=== PATIENT | male | born 1955 | race Caucasian/White ===

== ENCOUNTER 2018-10-10 22:09 | Inpatient (IN) ==
[2018-10-10] MEDS ORDERED: SODIUM CHLORIDE 0.9% 2,000 ML IV STA (22:34)
[2018-10-10 22:58] LABS: Basophils % 1.2 % (0.0-0.8); Eosinophils % 2.3 % (0.00-10.9); Hematocrit 32.6 VOL% (42.0-52.0); Hemoglobin 10.4 GM/DL (14.0-18.0); Immature Granulocytes % 1.2 %; Immature Granulocytes Absolute 0.01 #; Lymphocytes # 0.3 10*3/uL (1.4-4.0); Lymphocytes % 37.2 % (21.2-54.2); Mean Corpuscular HGB Conc 31.9 GM/DL (32-36); Mean Corpuscular Volume 98.2 FL (87-102); Mean Platelet Volume 10.3 FL (9.6-12.0); Neutrophils % 58.1 % (38.7-73.9); Platelet Count 172 T/CUMM (130-400); Red Blood Count 3.32 MC/CUMM (3.8-5.5); Red Cell Distribution Width 14.3 % (9.3-17.3)
[2018-10-10 23:11] LABS: Alanine Aminotransferase 28 U/L (16-61); Albumin 3.5 G/DL (3.4-5.0); Alkaline Phosphatase 67 U/L (45-117); Aspartate Amino Transferase 19 U/L (0-37); Blood Urea Nitrogen 39 MG/DL (7-18); Glucose 139 MG/DL (74-106); Osmolality,Calculated 285.7 MOS/KG (273-304)
[2018-10-10 23:16] LABS: Apearance,Urine CLOUDY (Clear); Bilirubin,Urine Negative (Negative); Blood, Urine Large mg/dL (Negative); Glucose,Urine (UA) Negative (Negative); Ketones,Urine Negative (Negative); Nitrite,Urine Positive (Negative); Protein,Urine 100 MG/DL; RBC,Urine 51 /HPF (0-4); Urine Color Yellow (Yellow); Urine Specific Gravity 1.015 (1.001-1.035); Urine Urobilinogen < 2.0 EU/DL (0.2-1.0); WBC,Urine 718 /HPF (0-6)
[2018-10-10 23:22] LABS: White Blood Count 0.9 T/CUMM (4-12)
[2018-10-10] MEDS ORDERED: VANCOMYCIN INJ 1,000 MG in SODIUM CHLORIDE 0.9% 250 ML IV STA ×2 (23:40→23:42)
[2018-10-10] MEDS ORDERED: CEFEPIME 2,000 MG in SODIUM CHLORIDE 0.9% 100 ML IV STA (23:40)
[2018-10-11] MEDS: NOREPINEPHRINE 8 MG in SODIUM CHLORIDE 0.9% 242 ML IV PRN ×3 (01:12→13:06)
[2018-10-11 01:56] LABS: Band Neutrophils 6 % (0-10); Eosinophils 6 % (0-10); Lymphocytes 29 % (20-55); Platelet Estimate Normal; Segmented Neutrophils 57 % (50-85); Total Cells Counted 101
[2018-10-11] MEDS ORDERED: SODIUM CHLORIDE 0.9% 1,000 ML IV STA (02:23)
[2018-10-11] MEDS ORDERED: DOCUSATE SODIUM 100 MG CAPSULE PO PRN (04:57)
[2018-10-11] MEDS ORDERED: ONDANSETRON 4 MG/2 ML VIAL IV PRN (04:57)
[2018-10-11] MEDS ORDERED: ACETAMINOPHEN 325 MG TABLET PO PRN (04:57)
[2018-10-11] MEDS ORDERED: SODIUM CHLORIDE 0.9% 1,000 ML IV SCH (05:00)
[2018-10-11] MEDS: PIPERACILLIN/TAZOBACTAM 3,375 MG in SODIUM CHLORIDE 0.9% 100 ML IV SCH ×3 (05:01→22:00)
[2018-10-11] MEDS: ENOXAPARIN 40 MG/0.4 ML SYRINGE SUBCUT SCH (05:07)
[2018-10-11 06:25] LABS: Calcium 8.2 MG/DL (8.5-10.1); Osmolality,Calculated 293.1 MOS/KG (273-304); Thyroid Stimulating Hormone 4.56 uIU/ml (0.358-3.74)
[2018-10-11 06:43] LABS: Basophils % 0.3 % (0.0-0.8); Eosinophils % 0.4 % (0.00-10.9); Hematocrit 26.1 VOL% (42.0-52.0); Hemoglobin 8.6 GM/DL (14.0-18.0); Immature Granulocytes % 0.8 %; Immature Granulocytes Absolute 0.06 #; Lymphocytes # 0.2 10*3/uL (1.4-4.0); Lymphocytes % 2.8 % (21.2-54.2); Mean Corpuscular Volume 98.1 FL (87-102); Mean Platelet Volume 10.7 FL (9.6-12.0); Monocytes % 1.1 % (1.7-12.7); Neutrophils % 94.6 % (38.7-73.9); Platelet Count 132 T/CUMM (130-400); Red Blood Count 2.66 MC/CUMM (3.8-5.5); Red Cell Distribution Width 14.5 % (9.3-17.3); White Blood Count 7.6 T/CUMM (4-12)
[2018-10-11 07:12] LABS: Band Neutrophils 33 % (0-10); Eosinophils 2 % (0-10); Lymphocytes 5 % (20-55); Platelet Estimate Adequate; Segmented Neutrophils 60 % (50-85); Total Cells Counted 100
[2018-10-11 07:13] LABS: Anisocytosis Slight; Macrocytosis Slight
[2018-10-11] MEDS ORDERED: NOREPINEPHRINE 4 MG/4 ML VIAL IV ONE (08:04)
[2018-10-11] MEDS ORDERED: HYDROCORTISONE 100 MG VIAL IV ONE (09:45)
[2018-10-11] MEDS ORDERED: FLUDROCORTISONE 0.1 MG TABLET PO SCH (10:00)
[2018-10-11] MEDS: SODIUM BICARB INJ 150 MEQ in DEXTROSE 5% 850 ML IV SCH ×2 (11:29→19:29)
[2018-10-11] MEDS: HYDROCORTISONE 100 MG VIAL IV SCH (22:00)
[2018-10-12] MEDS: SODIUM BICARB INJ 150 MEQ in DEXTROSE 5% 850 ML IV SCH (03:29)
[2018-10-12 04:10] LABS: Basophils % 0.3 % (0.0-0.8); Eosinophils % 0.2 % (0.00-10.9); Hematocrit 25.5 VOL% (42.0-52.0); Hemoglobin 8.4 GM/DL (14.0-18.0); Immature Granulocytes % 8.5 %; Immature Granulocytes Absolute 0.85 #; Lymphocytes # 0.7 10*3/uL (1.4-4.0); Lymphocytes % 6.6 % (21.2-54.2); Mean Corpuscular HGB Conc 32.9 GM/DL (32-36); Mean Corpuscular Volume 96.6 FL (87-102); Mean Platelet Volume 11.8 FL (9.6-12.0); Monocytes % 5.7 % (1.7-12.7); Neutrophils % 78.7 % (38.7-73.9); Platelet Count 93 T/CUMM (130-400); Red Blood Count 2.64 MC/CUMM (3.8-5.5); Red Cell Distribution Width 14.5 % (9.3-17.3)
[2018-10-12 04:40] LABS: Calcium 8.4 MG/DL (8.5-10.1); Osmolality,Calculated 294.7 MOS/KG (273-304)
[2018-10-12 04:41] LABS: Band Neutrophils 7 % (0-10); Lymphocytes 6 % (20-55); Metamyelocytes 5 %; Myelocytes 5 %; Segmented Neutrophils 73 % (50-85); Total Cells Counted 100
[2018-10-12 04:42] LABS: Hypochromasia Slight; Platelet Estimate Adequate
[2018-10-12 04:43] LABS: Ovalocytes 1+; Reactive Lymphocytes Few
[2018-10-12] MEDS: PIPERACILLIN/TAZOBACTAM 3,375 MG in SODIUM CHLORIDE 0.9% 100 ML IV SCH ×3 (06:00→21:28)
[2018-10-12] MEDS: ENOXAPARIN 40 MG/0.4 ML SYRINGE SUBCUT SCH (06:00)
[2018-10-12] MEDS: HYDROCORTISONE 100 MG VIAL IV SCH ×2 (09:31→21:28)
[2018-10-12] MEDS: FLUDROCORTISONE 0.1 MG TABLET PO SCH (09:32)
[2018-10-12] MEDS: LACTATED RINGERS 1,000 ML IV SCH ×2 (09:32→22:52)
[2018-10-13 05:51] LABS: Basophils % 0.4 % (0.0-0.8); Eosinophils % 0.3 % (0.00-10.9); Hematocrit 24.9 VOL% (42.0-52.0); Hemoglobin 8.1 GM/DL (14.0-18.0); Immature Granulocytes % 13.9 %; Immature Granulocytes Absolute 1.56 #; Lymphocytes # 1.4 10*3/uL (1.4-4.0); Lymphocytes % 12.7 % (21.2-54.2); Mean Corpuscular HGB Conc 32.5 GM/DL (32-36); Mean Corpuscular Volume 96.9 FL (87-102); Mean Platelet Volume 13.6 FL (9.6-12.0); Monocytes % 4.8 % (1.7-12.7); Neutrophils % 67.9 % (38.7-73.9); Platelet Count 88 T/CUMM (130-400); Red Blood Count 2.57 MC/CUMM (3.8-5.5); Red Cell Distribution Width 14.7 % (9.3-17.3); White Blood Count 11.3 T/CUMM (4-12)
[2018-10-13] MEDS: ENOXAPARIN 40 MG/0.4 ML SYRINGE SUBCUT SCH (05:51)
[2018-10-13] MEDS: PIPERACILLIN/TAZOBACTAM 3,375 MG in SODIUM CHLORIDE 0.9% 100 ML IV SCH ×3 (05:52→20:33)
[2018-10-13 06:17] LABS: Band Neutrophils 17 % (0-10); Lymphocytes 13 % (20-55); Segmented Neutrophils 66 % (50-85); Total Cells Counted 100
[2018-10-13 06:18] LABS: Anisocytosis 1+; Platelet Estimate Decreased
[2018-10-13 06:22] LABS: Calcium 8.6 MG/DL (8.5-10.1)
[2018-10-13] MEDS: HYDROCORTISONE 100 MG VIAL IV SCH ×2 (08:54→20:31)
[2018-10-13] MEDS: FLUDROCORTISONE 0.1 MG TABLET PO SCH (08:55)
[2018-10-13] MEDS: LACTATED RINGERS 1,000 ML IV SCH ×2 (09:51→11:41)
[2018-10-13] MEDS: POTASSIUM CHLORIDE 10 MEQ TABLET PO SCH (20:31)
[2018-10-14] MEDS: LACTATED RINGERS 1,000 ML IV SCH (04:05)
[2018-10-14] MEDS: PIPERACILLIN/TAZOBACTAM 3,375 MG in SODIUM CHLORIDE 0.9% 100 ML IV SCH (05:21)
[2018-10-14] MEDS: POTASSIUM CHLORIDE 10 MEQ TABLET PO SCH ×2 (09:03→21:12)
[2018-10-14] MEDS: FLUDROCORTISONE 0.1 MG TABLET PO SCH (09:03)
[2018-10-14] MEDS: HYDROCORTISONE 100 MG VIAL IV SCH ×2 (09:05→21:11)
[2018-10-14] MEDS ORDERED: LEVOFLOXACIN 500 MG TABLET PO SCH (11:30)
[2018-10-14] MEDS: cefTRIAXone 2,000 MG in SYRINGE 1 EACH IV SCH (12:12)
[2018-10-14] MEDS: LISINOPRIL 10 MG TABLET PO SCH (16:55)
[2018-10-14] MEDS: ASPIRIN CHEW 81 MG TABLET PO SCH (16:55)
[2018-10-14] MEDS: POLYETHYLENE GLYCOL POWDER 17 GM PACK PO SCH (16:55)
[2018-10-14] MEDS: MELATONIN 3 MG TABLET PO PRN (21:11)
[2018-10-14] MEDS: traZODone 50 MG TABLET PO SCH (21:12)
[2018-10-14] MEDS: DULoxetine 20 MG CAPSULE PO SCH (21:12)
[2018-10-15] MEDS: LACTATED RINGERS 1,000 ML IV SCH ×3 (04:17→11:48)
[2018-10-15 04:48] LABS: Basophils % 0.5 % (0.0-0.8); Eosinophils # 0.1 10*3/uL (0.0-0.87); Eosinophils % 1.1 % (0.00-10.9); Hematocrit 26.6 VOL% (42.0-52.0); Hemoglobin 8.7 GM/DL (14.0-18.0); Immature Granulocytes % 2.3 %; Immature Granulocytes Absolute 0.14 #; Lymphocytes # 1.9 10*3/uL (1.4-4.0); Lymphocytes % 30.7 % (21.2-54.2); Mean Corpuscular HGB Conc 32.7 GM/DL (32-36); Mean Corpuscular Volume 97.1 FL (87-102); Mean Platelet Volume 10.8 FL (9.6-12.0); Monocytes % 6.5 % (1.7-12.7); Neutrophils % 58.9 % (38.7-73.9); Platelet Count 162 T/CUMM (130-400); Red Blood Count 2.74 MC/CUMM (3.8-5.5); Red Cell Distribution Width 14.1 % (9.3-17.3); White Blood Count 6.2 T/CUMM (4-12)
[2018-10-15 05:01] LABS: Calcium 8.3 MG/DL (8.5-10.1)
[2018-10-15] MEDS: LEVOTHYROXINE 25 MCG TABLET PO SCH (06:29)
[2018-10-15] MEDS: FLUDROCORTISONE 0.1 MG TABLET PO SCH (08:43)
[2018-10-15] MEDS: ATORVASTATIN 40 MG TABLET PO SCH (08:43)
[2018-10-15] MEDS: ASPIRIN CHEW 81 MG TABLET PO SCH (08:43)
[2018-10-15] MEDS: amLODIPine 10 MG TABLET PO SCH (08:43)
[2018-10-15] MEDS: LISINOPRIL 10 MG TABLET PO SCH (08:43)
[2018-10-15] MEDS: DULoxetine 20 MG CAPSULE PO SCH ×2 (08:43→21:01)
[2018-10-15] MEDS: TAMSULOSIN 0.4 MG CAPSULE PO SCH (08:43)
[2018-10-15] MEDS: POTASSIUM CHLORIDE 10 MEQ TABLET PO SCH ×2 (08:43→21:01)
[2018-10-15] MEDS: HYDROCORTISONE 100 MG VIAL IV SCH ×2 (08:44→21:02)
[2018-10-15] MEDS: NICOTINE 21 MG/24 HR PATCH TRANSDERM SCH (08:44)
[2018-10-15] MEDS: POLYETHYLENE GLYCOL POWDER 17 GM PACK PO SCH (08:44)
[2018-10-15] MEDS ORDERED: POTASSIUM CHLORIDE 20 MEQ TABLET PO ONE (11:00)
[2018-10-15] MEDS: ENOXAPARIN 40 MG/0.4 ML SYRINGE SUBCUT SCH (11:44)
[2018-10-15] MEDS: cefTRIAXone 2,000 MG in SYRINGE 1 EACH IV SCH (11:46)
[2018-10-15] MEDS: MELATONIN 3 MG TABLET PO PRN (21:01)
[2018-10-15] MEDS: traZODone 50 MG TABLET PO SCH (21:01)
[2018-10-16] MEDS: LACTATED RINGERS 1,000 ML IV SCH (02:43)
[2018-10-16 05:08] LABS: Basophils # 0.1 10*3/uL (0.0-0.2); Basophils % 0.9 % (0.0-0.8); Eosinophils # 0.1 10*3/uL (0.0-0.87); Eosinophils % 1.8 % (0.00-10.9); Hematocrit 27.3 VOL% (42.0-52.0); Hemoglobin 8.8 GM/DL (14.0-18.0); Immature Granulocytes % 5.7 %; Immature Granulocytes Absolute 0.32 #; Lymphocytes # 1.9 10*3/uL (1.4-4.0); Lymphocytes % 33.6 % (21.2-54.2); Mean Corpuscular HGB Conc 32.2 GM/DL (32-36); Mean Corpuscular Volume 97.5 FL (87-102); Mean Platelet Volume 12.7 FL (9.6-12.0); Monocytes % 10.1 % (1.7-12.7); NRBC # 0.02 10*3/uL; Neutrophils % 47.9 % (38.7-73.9); Platelet Count 123 T/CUMM (130-400); Red Cell Distribution Width 14.1 % (9.3-17.3); White Blood Count 5.6 T/CUMM (4-12)
[2018-10-16 05:30] LABS: Calcium 8.3 MG/DL (8.5-10.1); Osmolality,Calculated 287.1 MOS/KG (273-304)
[2018-10-16 05:32] LABS: Band Neutrophils 3 % (0-10); Eosinophils 1 % (0-10); Hypochromasia 1+; Lymphocytes 37 % (20-55); Platelet Estimate Decreased; Segmented Neutrophils 50 % (50-85); Total Cells Counted 100
[2018-10-16] MEDS: LEVOTHYROXINE 25 MCG TABLET PO SCH (07:10)
[2018-10-16] MEDS: FLUDROCORTISONE 0.1 MG TABLET PO SCH (09:10)
[2018-10-16] MEDS: POLYETHYLENE GLYCOL POWDER 17 GM PACK PO SCH (09:10)
[2018-10-16] MEDS: LISINOPRIL 10 MG TABLET PO SCH (09:10)
[2018-10-16] MEDS: amLODIPine 10 MG TABLET PO SCH (09:10)
[2018-10-16] MEDS: ATORVASTATIN 40 MG TABLET PO SCH (09:10)
[2018-10-16] MEDS: POTASSIUM CHLORIDE 10 MEQ TABLET PO SCH ×2 (09:10→20:52)
[2018-10-16] MEDS: ASPIRIN CHEW 81 MG TABLET PO SCH (09:10)
[2018-10-16] MEDS: TAMSULOSIN 0.4 MG CAPSULE PO SCH (09:10)
[2018-10-16] MEDS: NICOTINE 21 MG/24 HR PATCH TRANSDERM SCH (09:11)
[2018-10-16] MEDS: DULoxetine 20 MG CAPSULE PO SCH ×2 (09:11→20:51)
[2018-10-16] MEDS: LEVOFLOXACIN 500 MG TABLET PO SCH (12:00)
[2018-10-16] MEDS: ENOXAPARIN 40 MG/0.4 ML SYRINGE SUBCUT SCH (20:51)
[2018-10-16] MEDS: traZODone 50 MG TABLET PO SCH (20:52)
[2018-10-17 06:02] LABS: Basophils # 0.1 10*3/uL (0.0-0.2); Basophils % 0.9 % (0.0-0.8); Eosinophils # 0.5 10*3/uL (0.0-0.87); Eosinophils % 6.8 % (0.00-10.9); Hematocrit 27.8 VOL% (42.0-52.0); Immature Granulocytes % 4.8 %; Immature Granulocytes Absolute 0.37 #; Lymphocytes # 2.5 10*3/uL (1.4-4.0); Lymphocytes % 32.7 % (21.2-54.2); Mean Corpuscular HGB Conc 32.4 GM/DL (32-36); Mean Corpuscular Volume 97.2 FL (87-102); Mean Platelet Volume 11.2 FL (9.6-12.0); Monocytes % 10.3 % (1.7-12.7); NRBC # 0.02 10*3/uL; Neutrophils % 44.5 % (38.7-73.9); Platelet Count 201 T/CUMM (130-400); Red Blood Count 2.86 MC/CUMM (3.8-5.5); Red Cell Distribution Width 14.4 % (9.3-17.3); White Blood Count 7.8 T/CUMM (4-12)
[2018-10-17] MEDS: LEVOTHYROXINE 25 MCG TABLET PO SCH (06:17)
[2018-10-17 06:30] LABS: Calcium 8.5 MG/DL (8.5-10.1); Osmolality,Calculated 288.7 MOS/KG (273-304)
[2018-10-17] MEDS: amLODIPine 10 MG TABLET PO SCH (08:14)
[2018-10-17] MEDS: LEVOFLOXACIN 500 MG TABLET PO SCH (08:14)
[2018-10-17] MEDS: POLYETHYLENE GLYCOL POWDER 17 GM PACK PO SCH (08:14)
[2018-10-17] MEDS: LISINOPRIL 10 MG TABLET PO SCH (08:14)
[2018-10-17] MEDS: DULoxetine 20 MG CAPSULE PO SCH (08:14)
[2018-10-17] MEDS: TAMSULOSIN 0.4 MG CAPSULE PO SCH (08:15)
[2018-10-17] MEDS: ATORVASTATIN 40 MG TABLET PO SCH (08:15)
[2018-10-17] MEDS: POTASSIUM CHLORIDE 10 MEQ TABLET PO SCH (08:15)
[2018-10-17] MEDS: ASPIRIN CHEW 81 MG TABLET PO SCH (08:15)
[2018-10-17] MEDS: FLUDROCORTISONE 0.1 MG TABLET PO SCH (08:15)
[2018-10-17] MEDS: NICOTINE 21 MG/24 HR PATCH TRANSDERM SCH (08:16)
[2018-10-17 16:45] VITALS: BP 135/65
== END 2018-10-17 16:50 | DRG 698 ==
LOC: EDBD → EDUNIT# → N.ED 22:09 → N.EDINP 10-11 03:52 → SUATTDRO 10-11 03:52 → N.CC 10-11 04:43 → N.2E 10-13 14:22
PROVIDERS: ADMIT Family Medicine; ATTEND Family Medicine